=== PATIENT | female | born 1985 | race Caucasian/White ===

== ENCOUNTER 2017-10-10 05:11 | Inpatient (IN) | payer OTHER ==
[~2017-10-10] VITALS: Ht 170.2 cm; Wt 99.8 kg
[~2017-10-10 05:11] MED LIST: ALPRAZOLAM0.25 M2 PO; ASCORBIC ACID500 M3 PO; ASPIR-LOW81 MG PO; Ambien PO; ENDOCET 5-3251 EACH PO; FOLIC ACID1 MG PO; IBUPROFEN800 MG PO; LO-DOSE ASPIRIN81 M1 PO; Motrin PO; PERCOCET 5/31 TABLET PO; PRENATAL TABLE1 EACH PO; PRENATAL VITAM1 EAC1 PO; REGLAN5 MG PO
[2017-10-10 06:02] LABS: BASOPHIL (%) 0.3 % (0-1); EOSINOPHIL (%) 1.3 % (0-5); EOSINOPHIL COUNT 0.1 K/uL (0-0.3); HEMATOCRIT 34.7 % (36.0-46.0); HEMOGLOBIN 11.2 G/DL (11.9-15.5); IMMATURE GRANULOCYTE (%) 0.8 % (0.0-0.7); LYMPHOCYTE (%) 25.1 % (15-42); LYMPHOCYTE COUNT 1.9 K/uL (1.0-2.8); MCH 26.7 PG (29.0-34.0); MCHC 32.3 G/DL (30.0-36.0); MCV 82.6 FL (83-99); MONOCYTE (%) 9.1 % (3-12); MONOCYTE COUNT 0.7 K/uL (0-0.8); NEUTROPHIL (%) 63.4 % (45-76); NEUTROPHIL COUNT 4.9 K/uL (1.8-6.4); PLATELET COUNT 237 K/uL (156-360); RBC DIS.WIDTH-CV 13.3 % (11.8-14.6); RBC DIS.WIDTH-SD 39.8 % (39-53); WHITE BLOOD COUNT 7.7 K/uL (4.1-10.2)
[2017-10-10 10:16] VITALS: BP 130/71
[2017-10-10 12:01] VITALS: BP 133/65
[2017-10-10 14:17] VITALS: BP 125/70
[2017-10-10 19:25] VITALS: BP 111/68
[2017-10-10 23:00] VITALS: BP 108/71
[2017-10-11 03:00] VITALS: BP 111/68
[2017-10-11 06:45] LABS: BASOPHIL (%) 0.3 % (0-1); EOSINOPHIL (%) 1.5 % (0-5); EOSINOPHIL COUNT 0.2 K/uL (0-0.3); HEMATOCRIT 27.1 % (36.0-46.0); IMMATURE GRANULOCYTE (%) 0.5 % (0.0-0.7); LYMPHOCYTE (%) 22.9 % (15-42); LYMPHOCYTE COUNT 2.2 K/uL (1.0-2.8); MCH 26.7 PG (29.0-34.0); MCHC 31.7 G/DL (30.0-36.0); MCV 84.2 FL (83-99); MONOCYTE COUNT 0.9 K/uL (0-0.8); NEUTROPHIL (%) 65.8 % (45-76); NEUTROPHIL COUNT 6.4 K/uL (1.8-6.4); PLATELET COUNT 188 K/uL (156-360); RBC DIS.WIDTH-CV 13.2 % (11.8-14.6); RBC DIS.WIDTH-SD 40.7 % (39-53); WHITE BLOOD COUNT 9.7 K/uL (4.1-10.2)
[2017-10-11 06:52] LABS: HEMOGLOBIN 8.6 G/DL (11.9-15.5); RED BLOOD COUNT 3.22 M/uL (3.80-5.20)
[2017-10-11 07:32] VITALS: BP 119/69
[2017-10-11 11:51] VITALS: BP 122/76
[2017-10-11 14:33] VITALS: BP 130/77
[2017-10-11 19:03] VITALS: BP 120/70
[2017-10-11 23:17] VITALS: BP 118/69
[2017-10-12] MEDS ORDERED: ONDANSETRON ODT4 MG PO (09:10)
[2017-10-12] MEDS ORDERED: IBUPROFEN800 MG PO (09:10)
[2017-10-12] MEDS ORDERED: CHROMAGEN,1 CAPSULE PO (09:10)
[2017-10-12] MEDS ORDERED: ENDOCET 5-3251 EACH PO (09:10)
== END 2017-10-12 16:49 | disposition home or self-care (01) | DRG 766 ==
LOC: 2WEST 05:11 → 2SOUTH 12:47 → 2WEST 10-12 16:49
PROVIDERS: Obstetrics & Gynecology
PROC: 10D00Z1 Extraction of Products of Conception, Low, Open Approach (ICD-10-PCS; principal; 2017-10-10)
DX: O34.219 Maternal care for unspecified type scar from previous cesarean delivery (principal); O99.214 Obesity complicating childbirth; E66.9 Obesity, unspecified; Z3A.37 37 weeks gestation of pregnancy; Z37.0 Single live birth; Z15.89 Genetic susceptibility to other disease; Z87.59 Personal history of other complications of pregnancy, childbirth and the puerperium; Z82.5 Family history of asthma and other chronic lower respiratory diseases; Z82.49 Family history of ischemic heart disease and other diseases of the circulatory system; Z80.8 Family history of malignant neoplasm of other organs or systems
CPT/HCPCS: 85025; 86850; 86900; 86901; 88307; J0690; J1170; J1200; J2250; J2274; J2405; J3010; J7120

== ENCOUNTER 2017-10-15 19:38 | Outpatient (CLI) | payer OTHER ==
[2017-10-15] VITALS (12 sets, daily range): BP systolic 128–204; BP diastolic 82–121
[~2017-10-15 19:38] MED LIST changes: +CHROMAGEN,1 CAPSULE PO; +ONDANSETRON ODT4 MG PO
[2017-10-15 20:59] LABS: BASOPHIL (%) 0.5 % (0-1); EOSINOPHIL COUNT 0.2 K/uL (0-0.3); HEMATOCRIT 34.8 % (36.0-46.0); IMMATURE GRANULOCYTE (%) 0.6 % (0.0-0.7); LYMPHOCYTE (%) 27.4 % (15-42); LYMPHOCYTE COUNT 2.2 K/uL (1.0-2.8); MCH 27.5 PG (29.0-34.0); MCHC 32.2 G/DL (30.0-36.0); MCV 85.3 FL (83-99); MONOCYTE (%) 8.6 % (3-12); MONOCYTE COUNT 0.7 K/uL (0-0.8); NEUTROPHIL (%) 60.9 % (45-76); PLATELET COUNT 238 K/uL (156-360); RBC DIS.WIDTH-CV 13.7 % (11.8-14.6); RBC DIS.WIDTH-SD 41.9 % (39-53); WHITE BLOOD COUNT 8.1 K/uL (4.1-10.2)
[2017-10-15 21:00] LABS: ALBUMIN 3.4 G/DL (3.2-4.8); CHLORIDE 109 MEQ/L (99-109); FIBRINOGEN 315 mg/dL (150-450); POTASSIUM 3.9 MEQ/L (3.7-5.4); SODIUM 142 MEQ/L (136-147); TOTAL BILIRUBIN 0.4 MG/DL (0.0-1.0)
[2017-10-15 21:01] LABS: HEMOGLOBIN 11.2 G/DL (11.9-15.5); RED BLOOD COUNT 4.08 M/uL (3.80-5.20)
[2017-10-15 21:03] LABS: PTT 29.9 SEC (25-37)
[2017-10-15 21:06] LABS: ALKALINE PHOSPHATASE 141 IU/L (3-129); ALT (GPT) 33 IU/L (3-49); AST (GOT) 30 IU/L (2-34); CREATININE 0.5 MG/DL (0.6-1.3); GFR ESTIMATE (CALCULATED) > 59 mL/min/; GLUCOSE 90 mg/dL (70-99); LACTATE DEHYDROGENASE 212 IU/L (20-246); TOTAL PROTEIN 6.3 G/DL (6.4-8.3); UREA NITROGEN (BUN) 15 mg/dL (9-23)
[2017-10-16] VITALS (24 sets, daily range): BP systolic 125–161; BP diastolic 69–93
[2017-10-17 03:05] VITALS: BP 139/77
[2017-10-17] MEDS ORDERED: BUTALB-APAP-CA1 EACH PO (08:25)
[2017-10-17] MEDS ORDERED: NIFEDIPINE ER60 MG PO (08:25)
[2017-10-17 09:17] VITALS: BP 137/79
[2017-10-17 11:32] VITALS: BP 132/85
== END 2017-10-17 12:45 | disposition home or self-care (01) ==
LOC: LDRP-OP → 2WEST 19:39 → LDRP-OP 11-23 09:34
PROVIDERS: Advanced Practice Midwife
DX: O14.15 Severe pre-eclampsia, complicating the puerperium (principal); O99.215 Obesity complicating the puerperium; E66.9 Obesity, unspecified; Z68.31 Body mass index [BMI] 31.0-31.9, adult; O90.81 Anemia of the puerperium; D62 Acute posthemorrhagic anemia; Z88.0 Allergy status to penicillin; Z98.890 Other specified postprocedural states
CPT/HCPCS: 70450; 80053; 82570; 83615; 84156; 85025; 85384; 85610; 85730; G0378; J0360; J2270; J2405; J3475; J7120